=== PATIENT | female | born 1965 | race Caucasian/White ===

== ENCOUNTER 2018-03-23 09:10 | Inpatient (IN) | payer BC, MEDICARE ==
[~2018-03-23] VITALS: Ht 162.6 cm; Wt 65.4 kg
[~2018-03-23 09:10] MED LIST: ULTRAM50 M1 PO
--- NOTE | 2018-03-23 09:36 | NUR ---
PATIENT AMBULATES TO ROOM WITH STEADY GAIT, DEMINISHED RLL, CLEAR LEFT LUNG SOUNDS. TALKING WITH CLEAR SPEACH. MD INFORMED ABOUT PATIENT STATUS.
[2018-03-23 10:24] LABS: HEMOGLOBIN 12.9 g/dl (12.0-16.0); IMMATURE GRANULOCYTES 0.6 % (0.0-1.0); MEAN CELL VOLUME 85.2 fL CALC (80.0-100.0); MEAN CORPUSCULAR HGB 28.2 pG CALC (26.0-32.0); MEAN CORPUSCULAR HGB CONC 33.1 g/L CALC (32.0-36.0); NEUT# 9.36 thou/uL (2.00-7.15); RED BLOOD COUNT 4.58 mill/uL (4.20-5.60); RED CELL DISTRI WIDTH 12.9 % (11.5-15.5)
[2018-03-23 10:34] LABS: ALBUMIN 4.2 g/dL (3.2-5.0); ALKALINE PHOSPHATASE 78 u/l (38-126); ANION GAP 19 (6-22 (CALC)); BILIRUBIN, TOTAL 2.4 mg/dL (0.0-1.4); BUN 21 mg/dL (7-17); BUN/CREATININE RATIO 23 (12-20 (CALC)); CARBON DIOXIDE 25 mmol/l (22-30); CHLORIDE 100 mmol/l (95-108); CREATININE 0.9 mg/dL (0.5-1.0); GFR > 60 ML/MIN (>=60 (CALC)); GFR FOR AFR.AMER. > 60 ML/MIN (>=60 (CALC)); LIPASE 37 u/l (23-300); POTASSIUM 3.2 mmol/l (3.5-5.1); SGOT/AST 68 u/l (14-36); SGPT/ALT 24 u/l (9-52); SODIUM 141 mmol/l (137-146)
--- NOTE | 2018-03-23 10:51 | NUR ---
SBAR PRINTED TO FLOOR
[2018-03-23] MEDS ORDERED: PREDNISONE5 MG PO (11:06)
[2018-03-23] MEDS ORDERED: LOPRESSOR25 M1 PO (11:06)
[2018-03-23] MEDS ORDERED: URSODIOL500 MG PO (11:07)
[2018-03-23] MEDS ORDERED: MAG OXIDE400 MG PO (11:08)
[2018-03-23] MEDS ORDERED: SMZ-TMP DS1 TAB PO (11:09)
[2018-03-23] MEDS ORDERED: TACROLIMUS0.5 MG PO (11:10)
[2018-03-23] MEDS ORDERED: MYCOPHENOLAT500 MG PO (11:10)
[2018-03-23] MEDS ORDERED: COLLAGEN PLU PO (11:11)
--- NOTE | 2018-03-23 11:21 | NUR ---
Admission Note Report Given to: SBAR PRINTED TO FLOOR Transported by: Wheelchair X Stretcher Transported with: X Nurse Transporter X Patent IV O2 X Creping Machine Operator Helper
--- NOTE | 2018-03-23 11:27 | NUR ---
PT CAME FROM ER VIA STRETCHER BY PATTIE ROGER. TEXTILE CONVERTER IN ROOM FOR STAND BY ASSIST TO SCALE AND THEN TO BED. SAFETY PRECAUTIONS REINOFRCED AND CALL LIGHT IN REACH.
[2018-03-23 11:33] VITALS: BP 109/77
--- NOTE | 2018-03-23 11:35 | NUR ---
PT TAKEN TO ROOM 289 WITHOUT INCIDENT, REPORT WAS TO SERAFIN. PT WAS UPDATED PERIODICALLY WHILE IN ER ON KNOWN RESULTS.
[2018-03-23 12:23] LABS: URINE BILIRUBIN - DIPSTICK NEGATIVE (NEGATIVE); URINE BLOOD DIPSTICK MODERATE (NEGATIVE); URINE GLUCOSE - DIPSTICK NEGATIVE (NEGATIVE); URINE KETONE NEGATIVE (NEGATIVE); URINE LEUK ESTERASE NEGATIVE (NEGATIVE); URINE NITRITE - DIPSTICK NEGATIVE (Negative); URINE PROTEIN - DIPSTICK 30 mg/dL (NEG-TRACE); URINE UROBILINOGEN - DIPSTICK 0.2 E.U./dL (0.2)
[2018-03-23 12:27] LABS: URINE CLARITY SL CLOUDY; URINE COLOR DK. YELLOW; URINE EPITHELIAL CELLS MODERATE EPI/hpf (0-FEW)
[2018-03-23 12:28] LABS: URINE MUCUS MODERATE hpf (NONE-FEW)
--- NOTE | 2018-03-23 12:41 | NUR ---
ASSESSMENT DONE. RESPS EVEN AND UNLABORED. PT DENIES PAIN AT THIS TIME. #18 LAC THAT APPEARS HEALTHY. SAFETY PRECAUTIONS REINOFORCED AND CALL LIGHT IN REACH.
[2018-03-23 13:21] LABS: INFLUENZA A NONE DETECTED (NONE DETECT); INFLUENZA B NONE DETECTED (NONE DETECT)
--- NOTE | 2018-03-23 14:51 | NUR ---
Drug Selected: Vancomycin Age: 52 years Weight: 65 kg Height: 64 in Gender: Female SCR: 0.9 mg/dl CRCL (ml/min): 62.4 Give Vancomycin 750 mg q12 hrs NEXT TROUGH WILL BE 03/24/18 5888
[2018-03-23 15:09] VITALS: BP 118/66
--- NOTE | 2018-03-23 16:02 | NUR ---
PT IS RESTING IN BED WITH NO S/S OF DISTRESS NOTED. PT DENIES NEEDS AT THIS TIME. TELE IN PLACE. FAMILY MEMBERS IN ROOM. CALL LIGHT IN REACH.
--- NOTE | 2018-03-23 20:02 | NUR ---
BEDSIDE REPORT RECEIVED FROM PATTIE HU. PT RESTING IN BED SEMI FOWLERS WATCHING TV; ALERT AND ORIENTED. DENIES PAIN CURRENTLY. RESPIRATIONS EVEN AND UNLABORED ON ROOM AIR. AT BEDSIDE. PLAN OF CARE DISCUSSED. PT ENCOURAGED TO VERBALIZE CONCERNS. STATES UNDERSTANDING. SAFETY MEASURES IN PLACE. CALL LIGHT WITHIN REACH.
[2018-03-23 20:05] VITALS: BP 103/68
[2018-03-23 23:43] VITALS: BP 128/76
--- NOTE | 2018-03-24 00:18 | NUR ---
PT RESTING IN BED WATCHING TV. DENIES PAIN. RESPIRATIONS EVEN AND UNLABORED ON ROOM AIR. VS STABLE. TEMPERATURE REMAINS LOW GRADE AT 99.6. IV FLUIDS INFUSING WITHOUT DIFFICULTY; IV SITE APPEARS HEALTHY. NO REQUESTS OR COMPLAINTS AT THIS TIME. INDEPENDENT IN ROOM. SAFETY MEASURES IN PLACE. CALL LIGHT WITHIN REACH.
--- NOTE | 2018-03-24 03:59 | NUR ---
PT ASLEEP AT THIS TIME WITH NO SIGNS OF DISTRESS. NO ACUTE CHANGES IN CONDITION THROUGHOUT THE NIGHT. IV FLUIDS COMPLETED AND IV SITE IS SALINE LOCKED. SAFETY MEASURES IN PLACE. CALL LIGHT WITHIN REACH.
[2018-03-24 05:00] VITALS: BP 113/68
[2018-03-24 05:33] LABS: IMMATURE GRANULOCYTES 0.5 % (0.0-1.0); MEAN CELL VOLUME 84.3 fL CALC (80.0-100.0); MEAN CORPUSCULAR HGB 28.2 pG CALC (26.0-32.0); MEAN CORPUSCULAR HGB CONC 33.4 g/L CALC (32.0-36.0); NEUT# 5.54 thou/uL (2.00-7.15); RED BLOOD COUNT 3.76 mill/uL (4.20-5.60); RED CELL DISTRI WIDTH 12.7 % (11.5-15.5)
[2018-03-24 05:46] LABS: ALKALINE PHOSPHATASE 62 u/l (38-126); ANION GAP 12 (6-22 (CALC)); BUN 11 mg/dL (7-17); BUN/CREATININE RATIO 18 (12-20 (CALC)); CARBON DIOXIDE 22 mmol/l (22-30); CHLORIDE 109 mmol/l (95-108); CREATININE 0.6 mg/dL (0.5-1.0); GFR > 60 ML/MIN (>=60 (CALC)); GFR FOR AFR.AMER. > 60 ML/MIN (>=60 (CALC)); POTASSIUM 3.8 mmol/l (3.5-5.1); SGOT/AST 52 u/l (14-36); SGPT/ALT 26 u/l (9-52); SODIUM 139 mmol/l (137-146)
[2018-03-24 05:50] LABS: HEMATOCRIT 31.7 % (37.0-47.0); HEMOGLOBIN 10.6 g/dl (12.0-16.0)
[2018-03-24 05:55] LABS: ALBUMIN 2.8 g/dL (3.2-5.0); TOTAL PROTEIN 5.5 g/dL (6.3-8.2)
--- NOTE | 2018-03-24 06:25 | NUR ---
TYLENOL ADMINISTERED FOR TEMPERATURE AND MODERATE HEADACHE WITH GOOD EFFECT.
--- NOTE | 2018-03-24 07:00 | NUR ---
BEDSIDE REPORT RECEIVED BY ABE. PT IS RESTING IN BED WITH NO S/S OF DISTRESS NOTED. PT DENIES NEEDS AT THIS TIME. CALL LIGHT IN REACH.
[2018-03-24 07:23] VITALS: BP 103/62
--- NOTE | 2018-03-24 08:00 | NUR ---
ASSESSMENT DONE TELE IN PLACE. RESPS EVEN AND UNLABORED. PT DENIES PAIN AT THIS TIME. #18 RAC AND #20 RFA THAT APPEARS HEALTHY. SAFETY PRECAUTIONS REINFORCED AND CALL LIGHT IN REACH.
--- NOTE | 2018-03-24 12:03 | NUR ---
PT IS SITTING IN RECLINER EATING HER LUNCH WITH NO S/S OF DISTRESS NOTED. PT DENIES NEEDS AT THIS TIME. FAMILY IN ROOM. CALL LIGHT IN REACH.
--- NOTE | 2018-03-24 15:51 | NUR ---
PT GOING DOWN TO CT VIA WHEELCHAIR BY CLIENT RESOURCE SPECIALIST.
--- NOTE | 2018-03-24 16:01 | NUR ---
PT BACK FROM CT. NO S/S OF DISTRESS NOTED. PT DENIES NEEDS. FAMILY MEMBERS IN ROOM. CALL LIGHT IN REACH.
[2018-03-24 16:27] VITALS: BP 127/78
[2018-03-24 18:10] VITALS: BP 118/72
--- NOTE | 2018-03-24 20:00 | NUR ---
BEDSIDE REPORT RECEIVED FROM PATTIE HU. PT SITTING UP IN BED WATCHING TV; ALERT AND OREINTED. DENIES PAIN CURRENTLY. RESPIRATIONS EVEN AND UNLABORED ON ROOM AIR. PLAN OF CARE REVIEWED. PT ENCOURAGED TO VERBALIZE CONCERNS. STATES UNDERSTANDING. SAFETY MEASURES IN PLACE. CALL LIGHT WITHIN REACH.
--- NOTE | 2018-03-25 00:23 | NUR ---
PT RESTING IN BED WATCHING TV. VANCO INFUSION COMPLETED WITHOUT DIFFICULTY; IV SITE APPEARS HEALTHY AND FLUSHES. PT DENIES PAIN. REPSIRATIONS EVEN AND UNLABORED. TEMPERATURE INCREASED TO 101.0 AND TYLENOL ADMINISTRED; WILL REASSESS. PT IS INDEPENDENT IN ROOM AND AMBULATING IN HALLWAY AT TIMES. SAFETY MEASURES IN PLACE. CALL LIGHT WITHIN REACH.
[2018-03-25 00:34] VITALS: BP 126/78
--- NOTE | 2018-03-25 04:00 | NUR ---
PT ASLEEP AT THIS TIME WITH NO SIGNS OF DISTRESS. RESPIRATIONS EVEN AND UNLABORED ON ROOM AIR. CURRENTLY AFEBRILE. NO ACUTE CHANGES IN CONDITION THROUGHOUT THE NIGHT. SAFETY MEASURES IN PLACE. CALL LIGHT WITHIN REACH.
[2018-03-25 04:40] VITALS: BP 130/76
--- NOTE | 2018-03-25 07:25 | NUR ---
Vancomycin single level analysis: Current dose being given: 750 mg Current dosing interval: 12 hrs Current infusion time (hrs): 2 Single level Trough Data: Trough level obtained: 6 mcg/ml Recommendations: Give Vancomycin 1000 mg q 8 hrs. Infuse over 2 hrs PATIENTS SCR IMPROVED FOR 0.9 TO 0.6 NEXT TROUGH WILL BE 03/26/18 @ 0773
--- NOTE | 2018-03-25 08:00 | NUR ---
PT HAS BEEN AMBULATING IN THE [place] WITH NO DISTRESS NOTED. IV SITE IS FREE FROM REDNESS OR EDEMA. HR IS REG, PULSES ARE STRONG X4, ABD IS SOFT WITH ACTIVE BS. CONTINUE TO OBSERVE AND MONITOR TELE MONITOR IN PLACE.
[2018-03-25 08:05] VITALS: BP 140/79
[2018-03-25 12:05] VITALS: BP 117/72
--- NOTE | 2018-03-25 12:30 | NUR ---
PT IS VISITING WITH FAMILY, NO DISTRESS NOTED. IV SITE IS FREE FROM REDNESS OR EDEMA.
[2018-03-25 15:47] VITALS: BP 112/65
--- NOTE | 2018-03-25 16:30 | NUR ---
PT IS RELAXING AND GETTING IV ABT. NO DISTRESS NOTED. IV SITE IN THE LAC IS TRYING TO LEK, RFA IS CDI. NO LEAKING CONTINUE TO OSBERVE AND MONITOR.
--- NOTE | 2018-03-25 20:00 | NUR ---
BEDSIDE REPORT RECEIVED FROM FATOU CHASE. PT SITTING UP IN BED JUST OUT OF THE SHOWER; AT BEDSIDE. ALERT AND ORIENTED; SMILING AND PRESENT. RESPIRATIONS EVEN AND UNLABORED ON ROOM AIR. PLAN OF CARE REVIEWED. PT ENCOURAGED TO VERBALIZE CONCERNS. STATES UNDERSTANDING. SAFETY MEASURES IN PLACE. CALL LIGHT WITHIN REACH.
[2018-03-25 20:20] VITALS: BP 117/74
--- NOTE | 2018-03-26 | NUR ---
PT ASLEEP AT THIS TIME WITH NO SIGNS OF DISTRESS. RESPIRATIONS EVEN AND UNLABORED ON ROOM AIR. VANCOMYCIN STARTED; INFUSING WITHOUT DIFFICULTY; IV SITE APPEARS HEALTHY. INDEPENDENT IN ROOM. PT HAS NO REQUESTS OR CONCERNS. SAFETY MEASURES IN PLACE. CALL LIGHT WITHIN REACH.
[2018-03-26 00:20] VITALS: BP 120/72
[2018-03-26 03:35] VITALS: BP 115/73
--- NOTE | 2018-03-26 04:00 | NUR ---
PT ASLEEP AT THIS TIME WITH NO SIGNS OF DISTRESS; AWAKENS SPONTANEOUSLY. RESPIRATIONS EVEN AND UNLABORED. NO ACUTE CHANGES IN CONDITION THROUGHOUT THE NIGHT. SAFETY MEASURES IN PLACE. CALL LIGHT WITHIN REACH.
[2018-03-26 09:35] VITALS: BP 110/65
--- NOTE | 2018-03-26 09:35 | NUR ---
ASSESSMENT IS COMPLETED: IV SITE IS FREE FROM REDNESS OR EDEMA. HR IS REG, PULSES ARE STRONG X4, ABD IS SOFT WITH ACTIVE BS. CONTINUE TO OSBERVE AND MONITOR.
[2018-03-26 10:55] LABS: HEMATOCRIT 33.3 % (37.0-47.0); IMMATURE GRANULOCYTES 0.7 % (0.0-1.0); MEAN CELL VOLUME 84.5 fL CALC (80.0-100.0); MEAN CORPUSCULAR HGB 27.9 pG CALC (26.0-32.0); NEUT# 4.85 thou/uL (2.00-7.15); RED BLOOD COUNT 3.94 mill/uL (4.20-5.60); RED CELL DISTRI WIDTH 12.6 % (11.5-15.5)
[2018-03-26 11:01] LABS: ANION GAP 16 (6-22 (CALC)); BUN 6 mg/dL (7-17); BUN/CREATININE RATIO 9 (12-20 (CALC)); CARBON DIOXIDE 26 mmol/l (22-30); CHLORIDE 103 mmol/l (95-108); CREATININE 0.6 mg/dL (0.5-1.0); GFR > 60 ML/MIN (>=60 (CALC)); GFR FOR AFR.AMER. > 60 ML/MIN (>=60 (CALC)); MAGNESIUM 1.3 mg/dL (1.6-2.3); POTASSIUM 3.9 mmol/l (3.5-5.1); SODIUM 141 mmol/l (137-146)
[2018-03-26 11:59] VITALS: BP 113/76
--- NOTE | 2018-03-26 15:05 | NUR ---
S: SUSAN DE OLIVEIRA is a 52 F who presents with pneumonia of RLL. She has a history of lung disease and double lung transplant. All medications in patient's chart were reviewed. O: VS: BP 113/76, P 76, RR 18,T 99.4 F W 65.4 kg, HT 162.46 cm, Scr= 0.6, CrCl= 93.6 ml/min Vancomycin Trough = 18 mcg/mL A: Preliminary blood culture shows no growth after 48 hrs Sputum culture is pending Vancomycin trough is therapeutic P: Patient is on azithromycin 500 mg IV q24h, cefepime 2 gm IV q12h, and vancomycin 1 gm IV q8h. Vancomycin ordered for pharmacy to dose. Continue Vancomycin 1 gm IV Q8H. Vancomycin trough is drawn before the 4th dose on 03/27/18 0730. Vancomycin goal trough is between 15-20 mcg/ml. Pharmacy will follow and or advise on antibiotics use as needed.
[2018-03-26 15:33] VITALS: BP 120/74
[2018-03-26 19:40] VITALS: BP 139/82
--- NOTE | 2018-03-26 20:00 | NUR ---
BEDSIDE REPORT RECEIVED FROM FATOU CHASE. PT AMBULATING IN HALLWAYS AT THIS TIME; ALERT AND ORIENTED. DENIES PAIN. RESPIRATIONS EVEN AND UNLABORED ON ROOM AIR. PT HAS NO REQUESTS OR CONCERNS NOW. PLAN OF CARE REVIEWED. PT ENCOURAGED TO VERBALIZE CONCERNS. STATES UNDERSTANDING. SAFETY MEASURES IN PLACE. CALL LIGHT WITHIN REACH.
[2018-03-27 00:20] VITALS: BP 114/74
--- NOTE | 2018-03-27 00:38 | NUR ---
PT RESTING IN BED WATCHING TV. CONTINUES TO DENY PAIN. RESPIRATIONS EVEN AND UNLABROED ON ROOM AIR; LUNGS CLEAR. VANCOMYCIN INFUSING AT THIS TIME WITHOUT DIFFICULTY; IV SITE APPEARS HEALTHY AND FLUSHES. TELE ON. PT HAS NO REQUESTS OR CONCERNS. CALL LIGHT WITHIN REACH.
--- NOTE | 2018-03-27 04:00 | NUR ---
PT ASLEEP AT THIS TIME WITH NO SIGNS OF DISTRESS. RESPIRATIONS EVEN AND UNLABORED ON ROOM AIR. NO ACUTE CHANGES IN CONDITION THROUGHOUT THE NIGHT. SAFETY MEASURES IN PLACE. CALL LIGHT WITHIN REACH.
[2018-03-27 04:35] VITALS: BP 102/62
[2018-03-27 07:39] LABS: HEMATOCRIT 33.6 % (37.0-47.0); HEMOGLOBIN 11.3 g/dl (12.0-16.0); IMMATURE GRANULOCYTES 0.9 % (0.0-1.0); MEAN CELL VOLUME 83.2 fL CALC (80.0-100.0); MEAN CORPUSCULAR HGB CONC 33.6 g/L CALC (32.0-36.0); NEUT# 4.75 thou/uL (2.00-7.15); RED BLOOD COUNT 4.04 mill/uL (4.20-5.60); RED CELL DISTRI WIDTH 12.6 % (11.5-15.5)
[2018-03-27 07:50] VITALS: BP 128/64
--- NOTE | 2018-03-27 07:50 | NUR ---
PT IS RELAXING IN BED WITH NO DISTRESS NOTED. IV SITE IS FREE FROM REDNESS OR EDEMA. HR IS REG, PULSES ARE STRONG X4, ABD IS SOFT WITH ACTIVE BS. CONTINUE TO OBSERVE AND MONITOR.
[2018-03-27 07:59] LABS: ANION GAP 15 (6-22 (CALC)); BUN 6 mg/dL (7-17); BUN/CREATININE RATIO 11 (12-20 (CALC)); CARBON DIOXIDE 28 mmol/l (22-30); CHLORIDE 103 mmol/l (95-108); CREATININE 0.6 mg/dL (0.5-1.0); GFR > 60 ML/MIN (>=60 (CALC)); GFR FOR AFR.AMER. > 60 ML/MIN (>=60 (CALC)); MAGNESIUM 1.6 mg/dL (1.6-2.3); POTASSIUM 3.7 mmol/l (3.5-5.1); SODIUM 142 mmol/l (137-146)
[2018-03-27 12:00] VITALS: BP 105/72
--- NOTE | 2018-03-27 12:30 | NUR ---
PT HAS BEEN RELAXING IN BED. AND AMBULATING IN THE POL[place] WAY . NO DISTRESS NOTED IV SITE IS FREE FROM REDNESS OR EDEMA
[2018-03-27 16:00] VITALS: BP 106/67
--- NOTE | 2018-03-27 16:30 | NUR ---
PT REMAINS SITTING IN BED WITH NO DISTRESS NOTED . IV SITE IS FREE FROM REDNESS OR EDEMA.
[2018-03-27 19:40] VITALS: BP 123/84
--- NOTE | 2018-03-27 20:00 | NUR ---
BEDSIDE REPORT RECEIVED FROM FATOU CHASE. PT SITTING UP IN BED WITH VISITOR AT BEDSIDE; ALERT AND ORIENTED. DENIES PAIN CURRENTLY. RESPIRATIONS EVEN AND UNLABORED ON ROOM AIR. PLAN OF CARE REVIEWED. PT ENCOURAGED TO VERBALIZE CONCERNS. STATES UNDERSTANDING. SAFETY MEASURES IN PLACE. CALL LIGHT WITHIN REACH.
--- NOTE | 2018-03-27 23:58 | NUR ---
PT SITTING UP IN BED WATCHING TV; REMAINS AT BEDSIDE. DENIES PAIN. RESPIRATIONS EVEN AND UNLABORED ON ROOM AIR. IV SITE APPEARS HEALTHY; FLUSHES. NO REQUESTS OR CONCERNS AT THIS TIME. INDEPENDENT IN ROOM. SAFETY MEASURES IN PLACE. CALL LIGHT WITHIN REACH.
--- NOTE | 2018-03-28 04:05 | NUR ---
PT ASLEEP AT THIS TIME WITH NO SIGNS OF DISTRESS. RESPIRATIONS EVEN AND UNLABORED ON ROOM AIR. NO ACUTE CHANGES IN CONDITION THROUGHOUT THE NIGHT. INDEPENDENT IN ROOM. SAFETY MEASURES IN PLACE. CALL LIGHT WITHIN REACH.
[2018-03-28 04:25] VITALS: BP 118/69
[2018-03-28 05:30] LABS: HEMATOCRIT 32.7 % (37.0-47.0); IMMATURE GRANULOCYTES 1.3 % (0.0-1.0); MEAN CELL VOLUME 83.2 fL CALC (80.0-100.0); MEAN CORPUSCULAR HGB CONC 33.6 g/L CALC (32.0-36.0); NEUT# 4.42 thou/uL (2.00-7.15); RED BLOOD COUNT 3.93 mill/uL (4.20-5.60); RED CELL DISTRI WIDTH 12.5 % (11.5-15.5)
[2018-03-28 05:45] LABS: ANION GAP 15 (6-22 (CALC)); BUN 9 mg/dL (7-17); BUN/CREATININE RATIO 15 (12-20 (CALC)); CARBON DIOXIDE 26 mmol/l (22-30); CHLORIDE 107 mmol/l (95-108); CREATININE 0.6 mg/dL (0.5-1.0); GFR > 60 ML/MIN (>=60 (CALC)); GFR FOR AFR.AMER. > 60 ML/MIN (>=60 (CALC)); MAGNESIUM 1.5 mg/dL (1.6-2.3); POTASSIUM 4.4 mmol/l (3.5-5.1); SODIUM 143 mmol/l (137-146)
--- NOTE | 2018-03-28 07:50 | NUR ---
PT IS RELAXING IN BED WITH NO DISTRESS NOTED. WANTING TO GO HOME. IV SITE IS FREE FROM REDNESS OR EDEMA, HR IS REG, PULSES ARE STRONG X4, ABD IS SOFT WITH ACTIVE BS.
[2018-03-28 07:55] VITALS: BP 147/69
--- NOTE | 2018-03-28 10:53 | NUR ---
S: SUSAN DE OLIVEIRA is a 52 F who presents with community acquired pneumonia. She has a history of hypertension, lung disease, and lung transplant. All medications in patient's chart were reviewed. O: VS: BP 147/69, P 66, RR 18,T 98.1 W 65.4kg, HT 162.56cm, Scr=0.6,XiOi=976ek/min Vancoycin Trough on 03/27/18: 20 mcg/ml A: Blood culture shows no growth. Sputum culture is pending. A vancomycin trough level of 20 mcg/ml on 03/27/18 was at the upper limit of the therapeutic range. P: Patient is on azithromycin 500 mg IV q24h, cefepime 2 g IV q12h, and Septra DS 800/160 mg 1 tab po MoWeFr. Decrease Vancomycin to 1250mg IV Q12H. Vancomycin trough is drawn before the 4th dose on 03/29/18 at 0730. Vancomycin goal trough is between 15-20 mcg/ml. Pharmacy will follow and or advise on antibiotics use as needed.
[2018-03-28 11:10] VITALS: BP 122/69
--- NOTE | 2018-03-28 12:00 | NUR ---
PT IS RELAXIGN IN BED WITH NO DISTRESS NOTED. IV SITE IS FREE FROM REDNESS OR EDEMA
[2018-03-28] MEDS ORDERED: LEVAQUIN750 MG PO (12:52)
--- NOTE | 2018-03-28 13:17 | NUR ---
DISCHARGE INSTRUCTIONS GIVEN AND VERBALIZED UNDERSTANDING,. IV SITE DISCONTINEUD CATHETER INTACT. TELE MONITOR DC'D/ PT AMBULATED OFF THE UNIT.
== END 2018-03-28 13:17 | disposition home or self-care (01) | DRG 205 ==
LOC: ED 09:10 → ED-I 10:40 → ED 10:50 → MS2 10:51
PROVIDERS: Family Medicine; Nurse Practitioner; Nurse Practitioner Family; ADMIT Internal Medicine; ATTEND Internal Medicine
DX: T86.812 Lung transplant infection (principal); J18.9 Pneumonia, unspecified organism; E87.2 Acidosis; E83.42 Hypomagnesemia; I10 Essential (primary) hypertension; E80.6 Other disorders of bilirubin metabolism; Y83.0 Surgical operation with transplant of whole organ as the cause of abnormal reaction of the patient, or of later complication, without mention of misadventure at the time of the procedure; Z87.891 Personal history of nicotine dependence; Z79.899 Other long term (current) drug therapy
CPT/HCPCS: J0692; J3370; J3475

== ENCOUNTER 2018-08-17 20:02 | Emergency (ER) | payer BC, MEDICARE ==
[~2018-08-17] VITALS: Ht 162.6 cm; Wt 73.0 kg
[~2018-08-17 20:02] MED LIST changes: +COLLAGEN PLU PO; +LEVAQUIN750 MG PO; +LOPRESSOR25 M1 PO; +MAG OXIDE400 MG PO; +MYCOPHENOLAT500 MG PO; +PREDNISONE5 MG PO; +SMZ-TMP DS1 TAB PO; +TACROLIMUS0.5 MG PO; +URSODIOL500 MG PO
[2018-08-17 20:06] VITALS: BP 112/72
[2018-08-17 20:57] LABS: INFLUENZA A NONE DETECTED (NONE DETECT); INFLUENZA B NONE DETECTED (NONE DETECT)
[2018-08-17 21:00] LABS: IMMATURE GRANULOCYTES 0.4 % (0.0-5.0); MEAN CELL VOLUME 83.9 fL CALC (80.0-100.0); MEAN CORPUSCULAR HGB 28.1 pG CALC (26.0-32.0); MEAN CORPUSCULAR HGB CONC 33.5 g/L CALC (32.0-36.0); NEUT# 6.36 thou/uL (2.00-7.15); RED BLOOD COUNT 4.77 mill/uL (4.20-5.60); RED CELL DISTRI WIDTH 13.1 % (11.5-15.5)
[2018-08-17 21:00] LABS: URINE BILIRUBIN - DIPSTICK NEGATIVE (NEGATIVE); URINE BLOOD DIPSTICK MODERATE (NEGATIVE); URINE COLOR YELLOW; URINE GLUCOSE - DIPSTICK NEGATIVE (NEGATIVE); URINE KETONE NEGATIVE (NEGATIVE); URINE NITRITE - DIPSTICK NEGATIVE (Negative); URINE PROTEIN - DIPSTICK NEGATIVE (NEG-TRACE)
[2018-08-17 21:03] LABS: URINE CLARITY CLOUDY; URINE LEUK ESTERASE SMALL (NEGATIVE)
[2018-08-17 21:04] LABS: HEMOGLOBIN 13.4 g/dl (12.0-16.0)
[2018-08-17 21:06] LABS: URINE BACTERIA FEW hpf; URINE RBC TNTC RBC/hpf (0-5); URINE SQUAMOUS EPITHELIAL CELL FEW EPI/hpf (0-FEW); URINE WBC 20-50 WBC/hpf (0-5)
[2018-08-17 21:16] LABS: ALKALINE PHOSPHATASE 72 u/l (38-126); BILIRUBIN, TOTAL 2.4 mg/dL (0.0-1.4); BUN 13 mg/dL (7-17); BUN/CREATININE RATIO 16 (12-20 (CALC)); CARBON DIOXIDE 28 mmol/l (22-30); CHLORIDE 99 mmol/l (95-108); CREATININE 0.8 mg/dL (0.5-1.0); GFR > 60 ML/MIN (>=60 (CALC)); GFR FOR AFR.AMER. > 60 ML/MIN (>=60 (CALC)); SGOT/AST 80 u/l (14-36); SODIUM 137 mmol/l (137-146)
[2018-08-17 21:18] LABS: ALBUMIN 4.1 g/dL (3.2-5.0); ANION GAP 14 (6-22 (CALC)); POTASSIUM 3.5 mmol/l (3.5-5.1)
[2018-08-17] MEDS ORDERED: BACTRIM DS1 TAB PO (21:29)
== END 2018-08-17 22:04 | disposition home or self-care (01) | DRG 690 ==
LOC: ED 20:02
PROVIDERS: Family Medicine
DX: N39.0 Urinary tract infection, site not specified (principal); Z94.2 Lung transplant status; B34.9 Viral infection, unspecified; R05 Cough; R09.81 Nasal congestion; R50.9 Fever, unspecified; R51 Headache; R11.0 Nausea; H92.02 Otalgia, left ear

== ENCOUNTER 2018-11-02 17:06 | Emergency (ER) | payer BC ==
[~2018-11-02] VITALS: Ht 162.6 cm; Wt 68.0 kg
[~2018-11-02 17:06] MED LIST changes: +BACTRIM DS1 TAB PO
[2018-11-02] MEDS ORDERED: BACTRIM DS1 TAB PO (17:24)
[2018-11-02 17:47] LABS: IMMATURE GRANULOCYTES 0.4 % (0.0-5.0); MEAN CELL VOLUME 82.3 fL CALC (80.0-100.0); MEAN CORPUSCULAR HGB 27.4 pG CALC (26.0-32.0); MEAN CORPUSCULAR HGB CONC 33.3 g/L CALC (32.0-36.0); NEUT# 6.58 thou/uL (2.00-7.15); RED BLOOD COUNT 4.74 mill/uL (4.20-5.60); RED CELL DISTRI WIDTH 13.3 % (11.5-15.5)
[2018-11-02 18:25] LABS: BUN 13 mg/dL (7-17); BUN/CREATININE RATIO 16 (12-20 (CALC)); CARBON DIOXIDE 24 mmol/l (22-30); CHLORIDE 99 mmol/l (95-108); CREATININE 0.8 mg/dL (0.5-1.0); GFR > 60 ML/MIN (>=60 (CALC)); GFR FOR AFR.AMER. > 60 ML/MIN (>=60 (CALC)); SODIUM 135 mmol/l (137-146)
[2018-11-02 18:34] LABS: ANION GAP 16 (6-22 (CALC)); MAGNESIUM 1.9 mg/dL (1.6-2.3); POTASSIUM 4.4 mmol/l (3.5-5.1)
[2018-11-02 20:31] VITALS: BP 131/77
== END 2018-11-02 20:31 | disposition left against medical advice (07) | DRG 204 ==
LOC: ED 17:06
PROVIDERS: Family Medicine
DX: R06.02 Shortness of breath (principal); Z94.2 Lung transplant status; I10 Essential (primary) hypertension; Z79.899 Other long term (current) drug therapy; M54.9 Dorsalgia, unspecified; Z91.19 Patient's noncompliance with other medical treatment and regimen
CPT/HCPCS: Q9967

== ENCOUNTER 2019-02-20 10:28 | Emergency (ER) | payer BC ==
[~2019-02-20] VITALS: Ht 162.6 cm; Wt 56.8 kg
[2019-02-20] MEDS ORDERED: AZITHROMYCIN1 GM PO (10:43)
[2019-02-20] MEDS ORDERED: CLOTRIMAZOLE10 MG MT (10:51)
[2019-02-20 10:55] VITALS: BP 131/95
== END 2019-02-20 11:00 | disposition home or self-care (01) | DRG 158 ==
LOC: ED 10:28
DX: B37.0 Candidal stomatitis (principal); I10 Essential (primary) hypertension; Z94.2 Lung transplant status; Z79.899 Other long term (current) drug therapy

== ENCOUNTER 2019-04-19 02:17 | Emergency (ER) | payer BC ==
[~2019-04-19] VITALS: Ht 162.6 cm; Wt 52.0 kg
[~2019-04-19 02:17] MED LIST changes: +AZITHROMYCIN1 GM PO; +CLOTRIMAZOLE10 MG MT
[2019-04-19 02:48] LABS: HEMATOCRIT 41.5 % (37.0-47.0); HEMOGLOBIN 12.3 g/dl (12.0-16.0); MEAN CORPUSCULAR HGB 27.7 pG CALC (26.0-32.0); MEAN CORPUSCULAR HGB CONC 29.6 g/L CALC (32.0-36.0); NEUT# 10.38 thou/uL (2.00-7.15); RED BLOOD COUNT 4.44 mill/uL (4.20-5.60); RED CELL DISTRI WIDTH 14.2 % (11.5-15.5)
[2019-04-19 02:51] LABS: MEAN CELL VOLUME 93.5 fL CALC (80.0-100.0)
[2019-04-19 02:57] LABS: ALBUMIN 3.4 g/dL (3.2-5.0); ALKALINE PHOSPHATASE 92 u/l (38-126); BUN 12 mg/dL (7-17); BUN/CREATININE RATIO 27 (12-20 (CALC)); CREATININE 0.4 mg/dL (0.5-1.0); GFR > 60 ML/MIN (>=60 (CALC)); GFR FOR AFR.AMER. > 60 ML/MIN (>=60 (CALC)); POTASSIUM 4.2 mmol/l (3.5-5.1); SGOT/AST 44 u/l (14-36); SODIUM 134 mmol/l (137-146); TOTAL PROTEIN 6.5 g/dL (6.3-8.2)
[2019-04-19] MEDS ORDERED: SEROQUEL25 MG PO (02:58)
[2019-04-19] MEDS ORDERED: ZITHROMAX250 MG PO (02:59)
[2019-04-19 03:09] LABS: MYOGLOBIN 26 ng/mL (0 - 62)
[2019-04-19 03:17] LABS: CHLORIDE 86 mmol/l (95-108)
[2019-04-19 03:18] LABS: ANION GAP 10 (6-22 (CALC)); BILIRUBIN, TOTAL 0.9 mg/dL (0.0-1.4); CARBON DIOXIDE 42 mmol/l (22-30)
[2019-04-19 05:14] VITALS: BP 124/70
== END 2019-04-19 05:13 | disposition short-term general hospital (02) | DRG 189 ==
LOC: ED 02:17
PROVIDERS: Emergency Medicine
DX: J96.90 Respiratory failure, unspecified, unspecified whether with hypoxia or hypercapnia (principal); E87.2 Acidosis; J44.1 Chronic obstructive pulmonary disease with (acute) exacerbation; R06.02 Shortness of breath; R05 Cough; D72.829 Elevated white blood cell count, unspecified; R00.0 Tachycardia, unspecified

== ENCOUNTER 2019-04-30 08:38 | Emergency (ER) | payer SELFPAY ==
[~2019-04-30] VITALS: Ht 162.6 cm; Wt 114.0 kg
[~2019-04-30 08:38] MED LIST changes: +SEROQUEL25 MG PO; +ZITHROMAX250 MG PO
[2019-04-30 09:04] LABS: MEAN CELL VOLUME 95.6 fL CALC (80.0-100.0); MEAN CORPUSCULAR HGB 27.8 pG CALC (26.0-32.0); MEAN CORPUSCULAR HGB CONC 29.1 g/L CALC (32.0-36.0); NEUT# 9.39 thou/uL (2.00-7.15); RED BLOOD COUNT 3.16 mill/uL (4.20-5.60); RED CELL DISTRI WIDTH 15.1 % (11.5-15.5)
[2019-04-30 09:06] LABS: HEMATOCRIT 30.2 % (37.0-47.0); HEMOGLOBIN 8.8 g/dl (12.0-16.0)
[2019-04-30 09:28] LABS: ALBUMIN 3.4 g/dL (3.2-5.0); ALKALINE PHOSPHATASE 65 u/l (38-126); BUN 12 mg/dL (7-17); BUN/CREATININE RATIO 36 (12-20 (CALC)); CHLORIDE 87 mmol/l (95-108); CREATININE 0.3 mg/dL (0.5-1.0); GFR > 60 ML/MIN (>=60 (CALC)); GFR FOR AFR.AMER. > 60 ML/MIN (>=60 (CALC)); SGOT/AST 38 u/l (14-36); SODIUM 133 mmol/l (137-146); TOTAL PROTEIN 5.9 g/dL (6.3-8.2)
[2019-04-30 09:40] LABS: MYOGLOBIN 52 ng/mL (0 - 62)
[2019-04-30 09:43] LABS: ANION GAP 10 (6-22 (CALC))
[2019-04-30 09:44] LABS: BILIRUBIN, TOTAL 1.5 mg/dL (0.0-1.4); CARBON DIOXIDE 40 mmol/l (22-30)
[2019-04-30] MEDS ORDERED: ELIQUIS5 MG PO (11:44)
[2019-04-30] MEDS ORDERED: LEVOFLOXACIN750 MG PO (11:45)
[2019-04-30] MEDS ORDERED: CLOTRIMAZOLE10 MG MT (11:47)
[2019-04-30] MEDS ORDERED: MAGTAB SR84 MG PO (11:48)
[2019-04-30] MEDS ORDERED: MAG-OX 400400 MG PO (11:49)
[2019-04-30 13:36] VITALS: BP 93/58
== END 2019-04-30 13:36 | disposition short-term general hospital (02) | DRG 189 ==
LOC: ED 08:38
PROVIDERS: Family Medicine
DX: J96.20 Acute and chronic respiratory failure, unspecified whether with hypoxia or hypercapnia (principal); I10 Essential (primary) hypertension; Z94.2 Lung transplant status; Z86.718 Personal history of other venous thrombosis and embolism; Z79.01 Long term (current) use of anticoagulants
CPT/HCPCS: Q9967